=== PATIENT | male | born 1980 | race Caucasian/White ===

== ENCOUNTER 2022-02-23 18:58 | Emergency (ER) | payer OTHER ==
[~2022-02-23] VITALS: Ht 170.2 cm; Wt 68.0 kg
[2022-02-23] MEDS ORDERED: HYDROmorphone 2 MG/ML VIAL IVP ONE (19:15)
[2022-02-23] MEDS ORDERED: HYDROCODONE/ACETAMINOPHEN 5-325 MG TABLET PO ONE (20:30)
[2022-02-23] MEDS ORDERED: HYDR-4723 PO (21:43)
[2022-02-23] MEDS ORDERED: IBUP-2070 PO (21:46)
[2022-02-23 22:41] VITALS: BP 122/77
== END 2022-02-23 22:59 | disposition home or self-care (01) ==
LOC: EMS 19:01
DX: S92.492A Other fracture of left great toe, initial encounter for closed fracture (principal); S97.82XA Crushing injury of left foot, initial encounter; V03.90XA Pedestrian on foot injured in collision with car, pick-up truck or van, unspecified whether traffic or nontraffic accident, initial encounter; Y93.89 Activity, other specified; Y92.89 Other specified places as the place of occurrence of the external cause; Y99.8 Other external cause status
CPT/HCPCS: 73610; 73630; 96374; 99285; J1170